=== PATIENT | male | born 2000 | race Caucasian/White ===

== ENCOUNTER 2022-01-22 15:34 | Emergency (ER) | payer BC, MEDICAID, SELFPAY ==
[2022-01-22 16:04] VITALS: BP 121/79; PULSE 90; RESP 18; TEMP 36.8; O2SAT 99; BMI 19.2
[2022-01-22 16:43] LABS: Influenza A Positive (Negative); Influenza B2 Negative (Negative)
[2022-01-22 16:44] LABS: COVID-19 Test Negative (Negative); IDNOW Serial# 9DB6401D
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
== END 2022-01-22 17:28 | disposition home or self-care (01) ==
PROVIDERS: Emergency Provider Internal Medicine; PCP Pediatrics
DX: J10.1 Influenza due to other identified influenza virus with other respiratory manifestations (principal); M54.50 Low back pain, unspecified; R50.9 Fever, unspecified; Z20.822 Contact with and (suspected) exposure to COVID-19; Z79.899 Other long term (current) drug therapy
CPT/HCPCS: 87502; 87635; 99283

== ENCOUNTER 2022-03-13 13:51 | Emergency (ER) | payer BC, MEDICAID, SELFPAY ==
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
[2022-03-13 14:15] VITALS: BP 132/82; PULSE 103; RESP 16; TEMP 37.2; O2SAT 97; BMI 19.0
== END 2022-03-13 18:48 | disposition left against medical advice (07) ==
PROVIDERS: Emergency Provider Emergency Medicine
DX: S29.9XXA Unspecified injury of thorax, initial encounter (principal); S49.92XA Unspecified injury of left shoulder and upper arm, initial encounter; Y00.XXXA Assault by blunt object, initial encounter; Y93.01 Activity, walking, marching and hiking; Y92.480 Sidewalk as the place of occurrence of the external cause; Y99.9 Unspecified external cause status
CPT/HCPCS: 71101; 73030; 99281; 99283

== ENCOUNTER 2023-03-11 16:15 | Emergency (ER) | payer BC, MEDICAID, SELFPAY ==
--- NOTE | ~2023-03-11 | XR_ITS ---
EXAMINATION: XR KNEE, LEFT CLINICAL INFORMATION: Pain, popping COMPARISON: None available. TECHNIQUE: Four views of the left knee. FINDINGS: Anatomic alignment. No acute fracture or dislocation. Joint spaces are maintained. No significant joint effusion. There are chronic appearing ossifications adjacent to the tibial tubercle. XR/XR knee LT 3V IMPRESSION: No radiographic evidence of acute fracture or dislocation.
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
[2023-03-11 16:47] VITALS: BP 122/80; PULSE 97; RESP 18; TEMP 37.2; O2SAT 98; BMI 19.2
[2023-03-11] MEDS: Ketorolac Tromethamine 15 MG/ML VIAL 30 MG IM (18:04)
== END 2023-03-11 19:05 | disposition home or self-care (01) ==
PROVIDERS: Emergency Provider Emergency Medicine
DX: M25.562 Pain in left knee (principal)
CPT/HCPCS: 73562; 96372; 99283; 99284; J1885

== ENCOUNTER 2023-03-30 11:48 | Outpatient (REF) | payer BC, SELFPAY ==
--- NOTE | ~2023-03-30 | XR_ITS ---
EXAMINATION: XR KNEE AP STANDING and LEFT KNEE IMAGING. CLINICAL INFORMATION: Pain COMPARISON: 03/03/2023 TECHNIQUE: AP bilateral standing view of the knees was obtained. FINDINGS: Joint spaces are satisfactory. Glenohumeral joint is intact. The fragmented tibial tuberosity is noted once again. This is presumably sequela of [place]-Schlatter's disease. No joint fluid. XR/XR knee LT 1V IMPRESSION: No acute findings. Chronic changes as above.
--- NOTE | ~2023-03-30 | XR_ITS ---
EXAMINATION: XR KNEE AP STANDING and LEFT KNEE IMAGING. CLINICAL INFORMATION: Pain COMPARISON: 03/03/2023 TECHNIQUE: AP bilateral standing view of the knees was obtained. FINDINGS: Joint spaces are satisfactory. Glenohumeral joint is intact. The fragmented tibial tuberosity is noted once again. This is presumably sequela of [place]-Schlatter's disease. No joint fluid. XR/XR knee standing BI IMPRESSION: No acute findings. Chronic changes as above.
== END 2023-03-30 11:49 | disposition home or self-care (01) ==
LOC: HO.HOSX 11:48
PROVIDERS: Visit Provider Physician Assistant
DX: M23.92 Unspecified internal derangement of left knee (principal)
CPT/HCPCS: 73560; 73565

== ENCOUNTER 2023-03-30 15:00 | Outpatient (AMB) | payer BC, SELFPAY ==
--- NOTE | 2023-03-30 15:15 | MHC.OFFVIS ---
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 Patient reports when he was rough-housing with a dog, patient reports that he was kneeling down, twisted his knee weird when the dog was playing with him, he reports he heard a pop and since then has been having pain, swelling and difficulties with ambulation, feels unstable to that knee. He states that he is able to put weight on it, but his pain gets worse and his knee beings to lock when walking for too long. 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 The patient presented to the ED on 03/11/2023 status post rough housing with his dog. He states he was kneeling down and twisted his knee when he heard a pop. He was placed in an LYRIC wrap and knee immobilizer. He states he has not been using the brace due to the knee becoming uncomfortable. He confirms edema, pain, and difficulty with ambulation. He states he feels the knee is unstable. He states he is able to put weight on it but reports it is causing increased pain. He states the knee begins to lock when ambulating. He states when he is walking the knee will give out after it has locked. He states he has not been able to work for 2-3 weeks, he is concerned how to get FMLA. 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 [facility], [facility] Social History (Updated 03/30/23 @ 15:21 by Irma Bradley) Alcohol intake: current Current occupational status: employed Current occupation: [employer]/ Review of Systems Const All systems reviewed & are unremarkable except as noted in HPI and below Physical Exam Const General: cooperative, healthy appearing, comfortable, no acute distress, well developed and alert Orientation/consciousness: patient oriented x3 HEENT Head: Yes normal to inspection, Yes normocephalic and Yes atraumatic Eyes General: appearance normal, both eyes and all related structures Resp Effort & Inspection: normal respiratory effort and able to speak in complete sentences Cardio Rate: regular rate Peripheral pulses: Peripheral pulses 2+ throughout GI Palpation (GI): Soft to palpation Skin Lesions: no lesions Rashes: no rashes Neuro General: patient oriented x3 Extrem Other: Left knee: Normal to inspection. No ecchymosis, erythema, or joint effusion. Tenderness to palpation over the patella tendon and lateral joint line. No tenderness to palpation along the medial joint line. ROM is 20-100 degrees. Negative Manish's. Negative anterior draw. NVI. Assessment & Plan Assessment & Plan (1) Internal derangement of left knee: Code(s): M23.92 - Unspecified internal derangement of left knee Plan Mr. Bradley is a 22-year-old male who presents in the office today, as a new patient, for an evaluation of left knee pain. The patient presented to the ED on 03/11/2023 status post rough housing with his dog. He states he was kneeling down and twisted his knee when he heard a pop. He was placed in an LYRIC wrap and knee immobilizer. He states he has not been using the brace due to the knee becoming uncomfortable. He confirms edema, pain, and difficulty with ambulation. He states he feels the knee is unstable. He states he is able to put weight on it but reports it is causing increased pain. He states the knee begins to lock when ambulating. He states when he is walking the knee will give out after it has locked. He states he has not been able to work for 2-3 weeks, he is concerned how to get FMLA. 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 The patient will be referred for a stat MRI for further evaluation and treatment of the left knee. He will be given a work note stating he is out of work until follow up. Follow up will be after he has obtained the MRI, or sooner if needed. X-rays of the bilateral knees which were obtained while in the office today and were reviewed by me, Joselyn Huntley PA-C, revealed no acute fracture or dislocation. X-rays of the left knee, obtained on 03/11/2023, revealed: No radiographic evidence of acute fracture or dislocation. Orders: Orders XR knee standing BI 03/30/23 M25.569 - Pain in unspecified knee MR knee LT wo con 03/30/23 M23.92 - Unspecified internal derangement of left knee Patient Instructions: Scribed for Joselyn Huntley PA-C by Patricia Gaspar back office medical assistant, on 03/30/2023 at 3:07 pm, EST. Your attestation Coding Level of Care Code New Pt Level 4 (00090) Diagnoses Internal derangement of left knee M23.92
== END 2023-03-30 16:12 | disposition home or self-care (01) ==
PROVIDERS: Visit Provider Physician Assistant
DX: M23.92 Unspecified internal derangement of left knee (principal)
CPT/HCPCS: 99204

== ENCOUNTER 2023-04-14 12:57 | Outpatient (AMB) | payer BC, SELFPAY ==
--- NOTE | 2023-04-14 13:04 | MHC.OFFVIS ---
Intake Vital Signs 04/14/23 13:06 Height 5 ft 9 in Weight 130 lb BMI 19.2 Intake Visit Reasons: Ov- MRI review with FAROOQ and DR Alba knee pain Intake Note: Kirill is a 22 year old male who presents today as a new patient for a evaluation for his left knee pain, DOI 03/11/23. Patient reports still having pain on his knee when it is over worked. Allergies No Known Allergies [No Known Allergies*] Allergy (Verified 04/14/23 13:06) HPI Ov- MRI review with FAROOQ and DR Alba knee pain HPI Details 22-year-old male who presents in the office today for a follow up of left knee pain and review of his MRI. He confirms he is having pain when over working the knee. He presents for a preoperative history and physical exam prior to a left knee arthroscopy to be performed by Dr. Sykes. Patient is currently employed with [employer] Patient has no known allergy history. Patient is not currently taking any medication. Patient has no significant medical history. Patient has no known surgical history. [facility] Social History Alcohol intake: current Current occupational status: employed Current occupation: [employer]/ Review of Systems Const All systems reviewed & are unremarkable except as noted in HPI and below Physical Exam Vital Signs: BMI result Body Mass Index 19.2 Const General: cooperative, healthy appearing and no acute distress Orientation/consciousness: patient oriented x3 HEENT Head: Yes normal to inspection, Yes normocephalic and Yes atraumatic Eyes General: appearance normal, both eyes and all related structures Neck Neck: Yes normal visual inspection and Yes no lymphadenopathy Resp Effort & Inspection: normal respiratory effort and able to speak in complete sentences Cardio Rate: regular rate Peripheral pulses: Peripheral pulses 2+ throughout GI Inspection: Yes normal to inspection Palpation (GI): Soft to palpation Skin General skin exam: no rashes or lesions noted Lesions: no lesions Rashes: no rashes Neuro General: patient oriented x3 Extrem Other: Left knee: Normal to inspection. No ecchymosis, erythema, or joint effusion. Tenderness to palpation over the patella tendon and lateral joint line. No tenderness to palpation along the medial joint line. ROM is 20-100 degrees. Negative Manish's. Negative anterior draw. NVI. Psych Mental Status: mental status grossly normal Assessment & Plan Assessment & Plan (1) Discoid lateral meniscus of left knee: Comment: Borderline partial discoid lateral meniscus without tear. Code(s): Q68.6 - Discoid meniscus (2) Bucket handle tear of medial meniscus of left knee: Comment: Displaced bucket-handle tear of the medial meniscus. Code(s): S83.212A - Bucket-handle tear of medial meniscus, current injury, left knee, initial encounter (3) Contusion of bone: Comment: Left knee mild bone contusion along the posterior medial margin of the medial plateau. Code(s): T14.8XXA - Other injury of unspecified body region, initial encounter Plan Mr. Bradley is a 22-year-old male who presents in the office today for a follow up of left knee pain and review of his MRI. He confirms he is having pain when over working the knee. He presents for a preoperative history and physical exam prior to a left knee arthroscopy to be performed by Dr. Sykes. Patient is currently employed with [employer] Patient has no known allergy history. Patient is not currently taking any medication. Patient has no significant medical history. Patient has no known surgical history. I discussed in detail the procedure and what to expect pre and post operatively. We discussed the risks, benefits and alternatives to the surgery as well as the rehabilitation course. The risks; which include, but are not limited to infection, bleeding, nerve injury, ongoing pain, swelling, and stiffness, perioperative risk of injury to bones and soft tissues, and blood clots. I have answered all questions and with their understanding they have consented to move forward with a left knee arthroscopy for partial menisectomy vs repair to be performed by Dr. Chris Sykes. MRI of the left knee, obtained at [facility] on 04/10/2023, revealed: 1. Displaced bucket-handle tear of the medial meniscus. 2. Borderline partial discoid lateral meniscus without tear. 3. Mild bone contusion along the posterior medial margin of the medial plateau. Patient Instructions: Scribed for Joselyn Huntley PA-C by Patricia Gaspar medical illustrator, on 04/14/2023 at 1:00 pm, EST. Your attestation Coding Level of Care Code New Pt Level 4 (04294) Diagnoses Discoid lateral meniscus of left knee Q68.6 Bucket handle tear of medial meniscus of left knee S83.212A Contusion of bone T14.8XXA
[2023-04-14 13:06] VITALS: BMI 19.2
== END 2023-04-14 13:53 | disposition home or self-care (01) ==
PROVIDERS: Visit Provider Physician Assistant
DX: S83.212A Bucket-handle tear of medial meniscus, current injury, left knee, initial encounter (principal); Q68.6 Discoid meniscus; T14.8XXA Other injury of unspecified body region, initial encounter
CPT/HCPCS: 99214

== ENCOUNTER → 2023-04-14 12:57 | Outpatient (BNVA) | payer BC, SELFPAY | PROVIDERS: Visit Provider Physician Assistant ==

== ENCOUNTER 2023-04-22 13:54 | Day surgery (SDC) | payer BC, MEDICAID, SELFPAY ==
[2023-04-22] VITALS (8 sets, daily range): BP systolic 81–114; BP diastolic 38–70; PULSE 45–81; RESP 11–18; TEMP 36.1–36.7; O2SAT 98–99; BMI 19.2
--- NOTE | 2023-04-22 14:13 | P.CONAN_ITS ---
HPI - Anesthesia Eval Consult details Narrative: Knee arthroscopy PMFSH Active Problems Active Problems: All Active Problems (Updated 04/14/23 @ 13:48 by Patricia Gaspar) Contusion of bone (Acute) Bucket handle tear of medial meniscus of left knee (Acute) Discoid lateral meniscus of left knee (Acute) Internal derangement of left knee (Acute) Family History Family history of problems with anesthesia: No Surgical History History of Problems with Anesthesia: No Social History Social History Alcohol intake: current Alcohol intake frequency: holidays/special occasions only Patient Tobacco Use Status: Never used Tobacco Use of substances other than those prescribed or required for medical reasons: Yes Substance Use Type Other:: vapes. smoked 1 joint today Are you DNR?: No Advance Directives: No Advance Directives Information Provided: Yes Current occupational status: employed Current occupation: [employer] Allergies Allergy/AdvReac Type Severity Reaction Status Date / Time No Known Allergies Allergy Verified 04/14/23 13:06 [No Known Allergies*] Active Medications: Current Medications Cefazolin Sodium/Dextrose (Ancef) 2 gm in 50 mls @ 100 mls/hr IV PREOP ONE Stop: 04/22/23 14:24 Home Medications Medication Instructions Recorded Confirmed Last Taken Type No Known Home Meds 03/30/23 03/30/23 Unknown History Exam Exam Date and Time: April 22, 2023 1413 Height,Weight and Vital Signs: Height 5 ft 9 in Weight 58.967 kg Airway Mallampati Class: II TM Dist: >3cm Neck ROM: Full Heart: rrr Lungs: cta Assessment and Plan Assessment Anesthesia Assessment: Anesthesia Plan Discussed and Chart Reviewed Final Anesthetic Review Family History of Problems with Anesthesia: No History of Problems with Anesthesia: No NPO: Yes ASA Class: II Final Preanesthetic Review: No Changes in Pt Med Stat, Meds/Allgs Chart Reviewed, Consent Obtained/Reviewed and Anes Risks/Benef Reviewed Patient Risk: Low Procedure Risk: Low Anesthetic Plan Anesthetic Plan: GA and Agree w/ Assess. and Plan Disposition: Standard PACU
[2023-04-22] MEDS: Lactated Ringers 1,000 ML 50 ML IVCONT (14:24)
--- NOTE | 2023-04-22 15:25 | P.BOP_ITS ---
Brief Operative Note Date of Service: 04/22/23 Pre-op diagnosis: Left mmt Post-op diagnosis: same Procedure: partial mm left knee Surgeon: Chris Sykes MD Anesthesia: GETA and local Was an Marketing Programs Specialist used for this Procedure?: No Estimated blood loss (mL): 5 Tourniquet time (min): 21 IV fluids (mL): 800 Pathology: none sent Condition: stable Disposition: PACU
--- NOTE | 2023-04-22 16:44 | PC.NURSE ---
DR. BRITT ANESTHESIA AWARE PATIENT HEART RATE IN 40'S. ASYMPTOMATIC NO DIZZNESS OR NAUSEA. BP STABLE.
--- NOTE | 2023-04-22 17:28 | PC.NURSE ---
1655 EVALUATED BY ANESTHESIA CLEAR TO DISCHARGE TO HOME
--- NOTE | 2023-05-01 15:13 | W.PM.OPN ---
Operative Note Operative Note Date of Service: 04/22/23 Narrative: Date of Service: 04/22/23 Pre-op diagnosis: Left mmt Post-op diagnosis: same Procedure: partial mm left knee Surgeon: Chris Sykes MD Anesthesia: GETA and local Was an Founder And Chief Executive Officer used for this Procedure?: No Estimated blood loss (mL): 5 Tourniquet time (min): 21 IV fluids (mL): 800 Pathology: none sent Condition: stable Disposition: PACU Procedure in detail: Patient was brought to the operating room placed supine on the arthroscopic table and prepped and draped in standard sterile fashion. A time-out was called to identify proper site proper procedure proper surgeon and IV antibiotics per weight were administered. I began by exsanguinating the limb and insufflating tourniquet to 300 mm Hg. Then made a standard anterolateral stab incision. The knee was insufflated with water and 30 degree arthroscope was placed. There was grade 1 fibrillations of the patella but overall suprapatellar pouch was plane and the gutters were clean. I descended into the medial compartment where I made my medial portal under direct visualization. There was a bucket handle tear of the medial meniscus. The flap was displaced into the notch. I attempted to reduce but it was extremely tight and the displaced flap was torn posteriorly and the remaining peripheral meniscus was 70% of the original meniscal volume. I did not feel that repair was reasonable.The root was intact and there was nl cartilage throughout the medial compartment. The peripheral flap was stable. Therefore I used a combination of biter shaver and cautery to remove unstable portions of the meniscus. Approxiamtely 30% of the meniscal volume was removed. Once I was happy with this the ACL was examined and found to be intact and the lateral compartment also was without the need for intervention. I then removed all instrumentation and closed the portals with skin glue. 25 mL of 2% Marcaine with epinephrine was injected into the joint and the surrounding soft tissues. Patient was then placed in sterile dressing extubated brought recovery room stable condition. There were no known complications.
== END 2023-04-22 17:30 | disposition home or self-care (01) ==
PROVIDERS: Visit Provider Orthopaedic Surgery
PROC: (CPT 29870; principal; 2023-04-22 15:30)
DX: S83.212A Bucket-handle tear of medial meniscus, current injury, left knee, initial encounter (principal); Q68.6 Discoid meniscus; M25.562 Pain in left knee; S80.02XA Contusion of left knee, initial encounter; X58.XXXA Exposure to other specified factors, initial encounter; Y93.89 Activity, other specified; Y92.9 Unspecified place or not applicable; Y99.8 Other external cause status
CPT/HCPCS: 29881; J0690; J1100; J1885; J2405; J2795; J3010

== ENCOUNTER → 2023-04-22 13:54 | Outpatient (BNV) | payer BC, SELFPAY | PROVIDERS: Visit Provider Orthopaedic Surgery | DX: S83.212A Bucket-handle tear of medial meniscus, current injury, left knee, initial encounter (principal) | CPT/HCPCS: 29881 ==

== ENCOUNTER 2023-05-07 10:49 | Outpatient (AMB) | payer BC, SELFPAY ==
--- NOTE | 2023-05-07 11:09 | A.OFFVIS_ITS ---
Intake Intake Visit Reasons: PO - Left Knee 04/22/2023 Intake Note: Kirill is a 22 year old male who presents today for a post op appointment for his left knee , 04/22/23 NE. Patient reports feeling a little better but it does to give him some discomfort when he is on his feet for too long. He states that he uses his crutches for support if he needs them. Allergies No Known Allergies [No Known Allergies*] Allergy (Verified 05/07/23 11:11) HPI PO - Left Knee 04/22/2023 HPI Details 22-year-old male who presents in the office today 2 weeks status post left knee partial medial menisectomy, which was performed on 04/22/[address] Sykes. The patient reports feeling a little better, but the left knee does give him mild discomfort when he is on his feet for long periods of time. He confirms use of the crutches for support when needed. [facility] Social History Alcohol intake: current Alcohol intake frequency: holidays/special occasions o nly Patient Tobacco Use Status: Never used Tobacco Current occupational status: employed Current occupation: [employer]/ Review of Systems Const All systems reviewed & are unremarkable except as noted in HPI and below Physical Exam Const General: cooperative, healthy appearing and no acute distress Resp Effort & Inspection: normal respiratory effort and able to speak in complete sentences Cardio Rate: regular rate Peripheral pulses: Peripheral pulses 2+ throughout GI Palpation (GI): Soft to palpation Skin Lesions: no lesions Rashes: no rashes Extrem Other: Left knee: Incision site is clean, dry, and intact. No signs of infection. ROM is 10-100 degrees. NVI. Assessment & Plan Assessment & Plan (1) S/P left knee arthroscopy: Code(s): Z98.890 - Other specified postprocedural states Plan Mr. Bradley is a 22-year-old male who presents in the office today 2 weeks status post left knee partial medial menisectomy, which was performed on 04/22/[address] Sykes. The patient reports feeling a little better, but the left knee does give him mild discomfort when he is on his feet for long periods of time. He confirms use of the crutches for support when needed. The patient will be referred to physical therapy to work on ROM in modalities. Follow up will be in 4 weeks for a ROM check, or sooner if needed. Patient Instructions: Scribed for Joselyn Huntley PA-C by Patricia Gaspar medical or surgical instrument maker, on 05/07/2023 at 11:03 am, EST. Coding Level of Care Code Global (58614) Diagnoses S/P left knee arthroscopy Z98.890
== END 2023-05-07 11:28 | disposition home or self-care (01) ==
PROVIDERS: Visit Provider Physician Assistant
DX: Z98.890 Other specified postprocedural states (principal)
CPT/HCPCS: 99024

== ENCOUNTER → 2023-05-07 10:49 | Outpatient (BNVA) | payer BC, SELFPAY | PROVIDERS: Visit Provider Physician Assistant ==

== ENCOUNTER 2023-06-04 13:05 | Outpatient (AMB) | payer BC, SELFPAY ==
--- NOTE | 2023-06-04 13:12 | A.OFFVIS_ITS ---
Intake Intake Visit Reasons: PO - Left Knee 04/22/2023 Intake Note: Kirill is a 22 year old male who presents today for a ROM check s/p left knee , 04/22/23 NE. Patient reports still having some discomfort and soreness. Allergies No Known Allergies [No Known Allergies*] Allergy (Verified 06/04/23 13:13) HPI PO - Left Knee 04/22/2023 HPI Details 22-year-old male who presents in the off ice today 6 weeks status post left knee partial medial menisectomy, which was performed on 04/22/[address] Sykes. The patient reports some discomfort and soreness. [facility] Social History Alcohol intake: current Alcohol intake frequency: holidays/special occasions only Patient Tobacco Use Status: Never used Tobacco Current occupational status: employed Current occupation: [employer]/ Review of Systems Const All systems reviewed & are unremarkable except as noted in HPI and below Physical Exam Const General: cooperative, healthy appearing and no acute distress Resp Effort & Inspection: normal respiratory effort and able to speak in complete sentences Cardio Rate: regular rate Peripheral pulses: Peripheral pulses 2+ throughout GI Palpation (GI): Soft to palpation Skin Lesions: no lesions Rashes: no rashes Extrem Other: Left knee: Normal to inspection. No ecchymosis, erythema, or joint effusion. No signs of infection. ROM is 0-90 degrees. Ambulates with antalgic gait. NVI. Assessment & Plan Assessment & Plan (1) S/P left knee arthroscopy: Comment: Left knee partial medial menisectomy 04/22/2023 Code(s): Z98.890 - Other specified postprocedural states Plan Mr. Bradley is a 22-year-old male who presents in the office today 6 weeks status post left knee partial medial menisectomy, which was performed on 04/22/[address] Sykes. The patient reports some discomfort and soreness. The patient has currently not attended any physical therapy session. I stressed the importance of attending physical therapy to work on his ROM. He is currently walking with antalgic gait with his leg locked in extension. I educated the patient on proper gait mechanics. I have placed another referral to physical therapy. 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 Follow up will be in 4 weeks for a ROM check, or sooner if needed. Patient Instructions: Scribed for Joselyn Huntley PA-C by Patricia Gaspar medical representative, on 06/04/2023 at 1:06 pm, EST. Coding Level of Care Code Global (99895) Diagnoses S/P left knee arthroscopy Z98.890
== END 2023-06-04 13:37 | disposition home or self-care (01) ==
PROVIDERS: Visit Provider Physician Assistant
DX: Z98.890 Other specified postprocedural states (principal)
CPT/HCPCS: 99024

== ENCOUNTER → 2023-06-04 13:05 | Outpatient (BNVA) | payer BC, SELFPAY | PROVIDERS: Visit Provider Physician Assistant ==

== ENCOUNTER 2023-08-27 14:32 | Outpatient (REF) | payer BC, MEDICAID, SELFPAY ==
--- NOTE | ~2023-08-27 | MR_ITS ---
EXAMINATION: MR KNEE WITHOUT CONTRAST, LEFT CLINICAL INFORMATION: Intermittent left knee pain. Evaluate for internal derangement. Evaluate for a lateral meniscal tear. Prior surgery. COMPARISON: Most recent left knee radiographs dated 03/30/2023. TECHNIQUE: MRI of the knee without contrast was performed using routine sequences on a high-field scanner. FINDINGS: Evaluation is somewhat limited secondary to patient motion. MENISCI: Medial Meniscus: Attenuation of the meniscal body, likely indicating prior meniscectomy. Oblique tibial articular surface signal at the middle third of the posterior horn with blunting and irregularity of the posterior root inner margin. Findings could represent the postsurgical result versus focal tearing. Correlation with surgical history is recommended. Possible small meniscal flap superior to the posterior root measuring up to 0.5 cm in AP dimension (sagittal image ). Lateral Meniscus: Intact. LIGAMENTS: Cruciate: Mildly increased T2 signal within the anterior cruciate ligament which could represent normal variation versus sequela of a remote sprain/partial tear. No evidence of acute ligament injury. Collateral: Intact. EXTENSOR MECHANISM: Intact. ARTICULAR CARTILAGE/BONE: Patellofemoral Compartment: Normal. Medial Compartment: Normal. Lateral Compartment: Normal. JOINT FLUID AND BURSAE: Trace joint effusion and trace James's cyst. MR/MR knee LT wo con IMPRESSION: 1. Attenuation of the medial meniscal body, likely indicating prior meniscectomy. Oblique tibial articular surface signal at the middle third of the posterior horn with blunting and irregularity of the posterior root inner margin. Findings could represent the postsurgical result versus focal tearing. Correlation with surgical history is recommended. Possible small meniscal flap superior to the posterior root measuring up to 0.5 cm in AP dimension. 2. Increased T2 signal within the anterior cruciate ligament which could represent normal variation versus sequela of a remote sprain/partial tear. No evidence of acute ligament injury. 3. Trace joint effusion and trace James's cyst.
== END 2023-08-27 14:33 | disposition home or self-care (01) ==
LOC: HO.MRI 14:32
PROVIDERS: Visit Provider Physician Assistant
DX: M23.92 Unspecified internal derangement of left knee (principal)
CPT/HCPCS: 73721

== ENCOUNTER 2023-10-23 10:00 | Outpatient (RCR) | payer OTHER, BC, SELFPAY ==
--- NOTE | 2023-09-28 13:06 | MHC.PT.EP ---
[facility] [place] Office [place] Office [place] Office [address] Minerva Newby [address] [phone] F: [phone] F: [phone] F: [phone] F: [phone] Physical Therapy Plan of Care Date of Evaluation: 09/28/23 Date of Surgery: 04/22/2023 Diagnosis: L knee arthroscopy; partial medial meniscectomy. Assessment: Pt is a 23 y/o male referred to PT for eval and treat of L knee arthroscopic medial meniscus resection performed on 04/22/22 and his present condition is resulting in decreased tolerance for performing heavy HH chores secondary to decreased L knee flexion ROM, decreased L knee and B hip strength, B genu-varum posture, surgical healing process and pain with activity. Pt is deemed an appropriate candidate to receive skilled PT services to address their physical impairments in order to improve their functional ability. Frequency and Duration: The patient will be seen 2 x/ wk x 4 wks. Short Term Goals: Initiate home program. Improve baseline pain form 0-4/10 to < 0-3/10. [facility] Goals: I with home program. Improve LEFI outcome measure by at least 9 points. Improve L knee flexion MMT by at least 1/2 MMT grade; initial 4/5 mildly painful. Pt will be able to descend stairs with reciprocal fashion; initial: compensated and non reciprocal. Treatment Plan: Modalities to reduce pain, spasms and effusion. Manual therapy to restore motion and function. Therapeutic exercise to improve strength and flexibility. Neuromuscular re-education for posture and balance. Therapeutic activities to return to functional activities of daily living. Electronically signed by: Adam Rojas PT. Please sign and return to therapist. Thank you for your referral.
--- NOTE | 2024-02-24 09:17 | MHC.PT.DC ---
[facility] [place] Office [place] Office [place] Office [address] Minerva Newby [address] [facility] [phone] F: [phone] F: [phone] F: [phone] F: [phone] Physical Therapy Discharge Report Diagnosis: L knee arthroscopy; partial medial meniscectomy. Date of Surgery: 04/22/2023 Date of Evaluation: 09/28/23 Date of Discharge: 02/24/24 Treatments to Date: 6 Cancellations to Date: 3 No Shows to Date: 3 Discharge Status: Visit Non-compliance Discharge Summary: . Electronically signed by: Adam Rojas PT. Please sign and return to therapist. Thank you for your referral.
== END 2024-02-24 09:17 | disposition home or self-care (01) ==
LOC: HO.PT 10:00
PROVIDERS: Visit Provider Physician Assistant
DX: Z98.890 Other specified postprocedural states (principal)
CPT/HCPCS: 97110; 97140; 97161; 97530